=== PATIENT | female | born 1990 | race Caucasian/White ===

== ENCOUNTER → 2017-04-08 | Outpatient (CLI) | payer OTHER ==
[~2017-04-08] VITALS: Ht 152.4 cm; Wt 102.1 kg
== END | disposition home or self-care (01) ==
LOC: PPHC 11:33
DX: K52.89 Other specified noninfective gastroenteritis and colitis (principal)

== ENCOUNTER 2018-09-01 11:22 | Emergency (ER) | payer OTHER ==
[~2018-09-01] VITALS: Ht 157.5 cm; Wt 106.6 kg
== END 2018-09-01 15:26 | disposition home or self-care (01) ==
LOC: ER 11:22
DX: N93.8 Other specified abnormal uterine and vaginal bleeding (principal); R10.2 Pelvic and perineal pain

== ENCOUNTER 2022-09-01 21:58 | Emergency (ER) | payer OTHER ==
[~2022-09-01] VITALS: Ht 160 cm; Wt 111.1 kg
== END 2022-09-01 23:20 | disposition home or self-care (01) ==
LOC: ER 21:58
DX: S99.822A Other specified injuries of left foot, initial encounter (principal); W22.8XXA Striking against or struck by other objects, initial encounter; Y93.89 Activity, other specified; Y92.89 Other specified places as the place of occurrence of the external cause; Z88.2 Allergy status to sulfonamides

== ENCOUNTER 2022-11-13 05:27 | Emergency (ER) | payer OTHER ==
[~2022-11-13] VITALS: Ht 157.5 cm; Wt 103.4 kg
[2022-11-13] MEDS ORDERED: OZEMPIC0.25 MG/02 SQ (05:39)
== END 2022-11-13 10:36 | disposition home or self-care (01) ==
LOC: ER 05:27
DX: K52.9 Noninfective gastroenteritis and colitis, unspecified (principal); Z88.8 Allergy status to other drugs, medicaments and biological substances

== ENCOUNTER → 2023-06-03 08:11 | Outpatient (CLI) | payer OTHER ==
[~2023-06-03 08:11] MED LIST: OZEMPIC0.25 MG/02 SQ
[2023-06-03 09:28] LABS: HEMOGLOBIN 12.2 g/dL (12.0-15.00); MEAN CELL VOLUME 79.7 fL (80.00-100.00); MEAN CORPUSCULAR HEMOGLOBIN 24.9 pg (27.00-32.0); MEAN CORPUSCULAR HGB CONC 31.3 g/dl (32.0-36.0); PLATELET COUNT 529 K/uL (150-450); RED CELL DISTRIBUTION WIDTH 14.9 % (11.5-14.5)
[2023-06-03 09:52] LABS: URINE APPEARANCE Clear; URINE BILIRRUBIN Negative (NEGATIVE); URINE BLOOD Large; URINE COLOR Yellow; URINE GLUCOSE Negative (NEGATIVE); URINE LEUKOCYTE Trace; URINE NITRATE Negative; URINE PROTEIN Negative (NEGATIVE)
[2023-06-03 09:53] LABS: URINE BACTERIA 187.7 uL (0.0-1933); URINE EPITHELIAL CELLS 10.2 uL (0.0-38.8); URINE RBC 2094.6 uL (0.0-20.8); URINE WBC 34.6 uL (0.0-23.2)
[2023-06-03 11:31] LABS: ALBUMIN 3.5 gm/dL (3.4-5.0); ALKALINE PHOSPHATASE 104 U/L (50-136); ALT/SGPT 16 U/L (12-78); ANION GAP 9 (10.0-20.0); BILIRUBIN TOTAL 0.32 mg/dL (0.3-1.2); BLOOD UREA NITROGEN 13 mg/dL (7-18); BUN CREA RATIO 22 (7.0-25.0); CALCIUM 9.4 mg/dL (8.5-10.1); CARBON DIOXIDE 30 mEq/L (21-32); CHLORIDE 108 mmol/L (98-107); CHOLESTEROL 160 mg/dL (0-200); CREATININE SERUM 0.58 mg/dL (0.55-1.02); GFR 120.47; GLOBULINA 3.8 G/DL (2.4-3.5); GLUCOSE FASTING 84 mg/dL (65-100); HDL 40 mg/dl (40-60); LDL 101 mg/dl (0-130); OSMOLALITY SERUM 282 MOSM/KG (275-295); POTASSIUM 5.05 mEq/L (3.5-5.1); SODIUM 142 mmol/L (136-145); TOTAL PROTEIN 7.3 gm/dL (6.4-8.2); TRIGLYCERIDES 93 mg/dL (0-150); VLDL 18 (0-39)
[2023-06-03 11:38] LABS: AST/SGOT < 3 U/L (15-37)
[2023-06-03 13:04] LABS: VITAMIN D3 25 HYDROXY 19.61 ng/ml (30-120)
== END | disposition home or self-care (01) ==
LOC: LAB 08:11
DX: E16.1 Other hypoglycemia (principal); E56.8 Deficiency of other vitamins; E55.9 Vitamin D deficiency, unspecified; E66.9 Obesity, unspecified

== ENCOUNTER 2023-09-10 06:24 | Outpatient (CLI) | payer OTHER ==
[2023-09-10 08:01] LABS: ALBUMIN 3.4 gm/dL (3.4-5.0); BILIRUBIN TOTAL 0.34 mg/dL (0.3-1.2); CALCIUM 9.2 mg/dL (8.5-10.1); CHOL HDL RATIO 5.2 (0-5.0); CREATININE SERUM 0.57 mg/dL (0.55-1.02); GFR 122.92; GLOBULINA 3.7 G/DL (2.4-3.5); POTASSIUM 4.16 mEq/L (3.5-5.1); TOTAL PROTEIN 7.1 gm/dL (6.4-8.2); TSH 2.54 uIU/mL (0.358-3.74)
[2023-09-10 11:11] LABS: VITAMIN D3 25 HYDROXY 24.61 ng/ml (30-120)
== END 2023-09-10 06:29 | disposition home or self-care (01) ==
LOC: LAB 06:24
DX: E78.2 Mixed hyperlipidemia (principal); E16.1 Other hypoglycemia; E55.9 Vitamin D deficiency, unspecified; E56.8 Deficiency of other vitamins; E66.9 Obesity, unspecified

== ENCOUNTER 2023-09-10 07:07 | Outpatient (CLI) | payer OTHER | END 2023-09-10 07:17 | disposition home or self-care (01) | LOC: SONOGRAMA 07:07 | DX: E66.9 Obesity, unspecified (principal) ==

== ENCOUNTER 2024-03-16 06:34 | Outpatient (CLI) | payer OTHER ==
[2024-03-16 07:14] LABS: HEMATOCRIT 37.1 % (36.0-45.00); MEAN CELL VOLUME 75.8 fL (80.00-100.00); MEAN CORPUSCULAR HEMOGLOBIN 26.4 pg (27.00-32.0); MEAN CORPUSCULAR HGB CONC 34.9 g/dl (32.0-36.0); PLATELET COUNT 522 K/uL (150-450); RED CELL DISTRIBUTION WIDTH 15.9 % (11.5-14.5)
[2024-03-16 08:17] LABS: ALBUMIN 3.3 gm/dL (3.4-5.0); BILIRUBIN TOTAL 0.52 mg/dL (0.3-1.2); CALCIUM 9.2 mg/dL (8.5-10.1); CHOL HDL RATIO 4.7 (0-5.0); CREATININE SERUM 0.62 mg/dL (0.55-1.02); GFR 111.55; GLOBULINA 3.8 G/DL (2.4-3.5); POTASSIUM 4.6 mEq/L (3.5-5.1); TOTAL PROTEIN 7.1 gm/dL (6.4-8.2); TSH 1.79 uIU/mL (0.358-3.74)
[2024-03-16 12:29] LABS: VITAMIN D3 25 HYDROXY 11.04 ng/ml (30-120)
== END 2024-03-16 06:35 | disposition home or self-care (01) ==
LOC: LAB 06:34
DX: R73.03 Prediabetes (principal); E55.9 Vitamin D deficiency, unspecified; E78.2 Mixed hyperlipidemia; M53.83 Other specified dorsopathies, cervicothoracic region; E56.8 Deficiency of other vitamins

== ENCOUNTER 2024-04-23 14:43 | Outpatient (CLI) | payer OTHER | END 2024-04-23 14:46 | disposition home or self-care (01) | LOC: SONOGRAMA 14:43 | DX: E04.0 Nontoxic diffuse goiter (principal) ==

== ENCOUNTER → 2024-08-13 07:22 | Outpatient (CLI) | payer OTHER | END | disposition home or self-care (01) | LOC: LAB 07:22 | DX: Z32.00 Encounter for pregnancy test, result unknown (principal) ==

== ENCOUNTER 2024-08-23 05:51 | Emergency (ER) | payer OTHER ==
[~2024-08-23] VITALS: Ht 157.5 cm; Wt 90.7 kg
[2024-08-23] MEDS ORDERED: FAMOTIDINE/PF 20 MG in 0.9 % SODIUM CHLORIDE 8 ML IV PUSH STA (06:18)
[2024-08-23] MEDS ORDERED: METRONIDAZOLE/SODIUM CHLORIDE 500 MG/100 ML PIGGYBACK IV ONE ×2 (06:26→06:30)
[2024-08-23] MEDS ORDERED: FAMOtidine 200mg/20ml VIAL ONE (06:27)
[2024-08-23] MEDS ORDERED: FAMOTIDINE/PF 20 MG/2 ML VIAL ONE (06:28)
[2024-08-23] MEDS ORDERED: 0.9 % SODIUM CHLORIDE 1,000 ML IV SCH (06:30)
[2024-08-23] MEDS ORDERED: DIPHENOXYLATE HCL/ATROPINE 1 UDTAB TABLET PO ONE (06:30)
[2024-08-23 08:01] LABS: ALBUMIN 3.3 gm/dL (3.4-5.0); BILIRUBIN TOTAL 0.29 mg/dL (0.3-1.2); CREATININE SERUM 0.75 mg/dL (0.55-1.02); GFR 88.99; GLOBULINA 4.2 G/DL (2.4-3.5); POTASSIUM 3.8 mEq/L (3.5-5.1); TOTAL PROTEIN 7.5 gm/dL (6.4-8.2)
[2024-08-23 08:11] LABS: BASO % 0.4 % (0.1-1.2); EOS # 0.14 (0.04-0.54); EOS % 1.1 % (0.7-7.0); HEMATOCRIT 40.9 % (34.1-44.9); HEMOGLOBIN 13.1 g/dL (11.2-15.7); LYMPH # 1.52 (1.18-3.74); LYMPH % 11.9 % (19.3-53.1); MEAN CORPUSCULAR HEMOGLOBIN 25.7 pg (25.6-32.2); MONO # 0.42 (0.24-0.82); MONO % 3.3 % (4.7-12.5); NEUT % 82.9 % (34.0-71.1); PLATELET COUNT 531 K/uL (163-369); RED CELL DISTRIBUTION WIDTH 14.2 % (11.6-14.4)
[2024-08-23] MEDS ORDERED: PEPCID AC20 MG PO (10:50)
[2024-08-23] MEDS ORDERED: METRONIDAZOLE500 MG PO (10:50)
[2024-08-23] MEDS ORDERED: ZOFRAN8 MG PO (10:50)
[2024-08-23] MEDS ORDERED: PROBIOTIC1 EAC2 PO (10:50)
== END 2024-08-23 11:00 | disposition home or self-care (01) ==
LOC: ER 06:36
PROVIDERS: General Practice
DX: R10.32 Left lower quadrant pain (principal); R10.9 Unspecified abdominal pain; E11.9 Type 2 diabetes mellitus without complications; Z88.1 Allergy status to other antibiotic agents

== ENCOUNTER → 2024-11-25 06:08 | Outpatient (CLI) | payer OTHER ==
[~2024-11-25 06:08] MED LIST changes: +METRONIDAZOLE500 MG PO; +PEPCID AC20 MG PO; +PROBIOTIC1 EAC2 PO; +ZOFRAN8 MG PO
[2024-11-25 06:54] LABS: BASO % 0.6 % (0.1-1.2); EOS # 0.24 (0.04-0.54); EOS % 2.8 % (0.7-7.0); LYMPH # 2.29 (1.18-3.74); LYMPH % 26.8 % (19.3-53.1); MEAN PLATELET VOLUME 8.30 fl (9.4-12.4); MONO # 0.43 (0.24-0.82); MONO % 5.0 % (4.7-12.5); NEUT # 5.52 (1.56-6.13); NEUT % 64.6 % (34.0-71.1); RED CELL DISTRIBUTION WIDTH 14.0 % (11.6-14.4)
[2024-11-25 08:10] LABS: ALT/SGPT 13.0 U/L (12-78); AST/SGOT 7.0 U/L (15-37); BILIRUBIN TOTAL 0.4 mg/dL (0.3-1.2); BUN CREA RATIO 23.0 (7.0-25.0); CHOL HDL RATIO 4.6 (0-5.0); CREATININE SERUM 0.52 mg/dL (0.55-1.02); GFR 135.8; GLOBULINA 3.5 G/DL (2.4-3.5); GLUCOSE FASTING 81.0 mg/dL (65-100); HDL 38.0 mg/dl (40-60); LDL 114.0 mg/dl (0-130); OSMOLALITY SERUM 284.0 MOSM/KG (275-295); TSH 1.69 uIU/mL (0.358-3.74); VLDL 23.0 (0-39)
[2024-11-25 11:18] LABS: VITAMIN D3 25 HYDROXY 23.26 ng/ml (30-120)
== END | disposition home or self-care (01) ==
LOC: LAB 06:08
DX: E55.9 Vitamin D deficiency, unspecified (principal); E66.9 Obesity, unspecified; E56.8 Deficiency of other vitamins; E16.1 Other hypoglycemia; E78.2 Mixed hyperlipidemia; I11.9 Hypertensive heart disease without heart failure